=== PATIENT | male | born 2005 | race Caucasian/White ===

== ENCOUNTER 2024-05-23 07:10 | Emergency (ER) | payer OTHER ==
[2024-05-23] MEDS ORDERED: Ketorolac Tromethamine 30 MG (1 mL) VIAL ONE (07:38)
[2024-05-23] MEDS ORDERED: cefTRIAXone (ROCEPHIN) 1 GM VIAL ONE (07:46)
[2024-05-23 08:06] LABS: #Basophils 0.03 10x3/uL (0.0-0.2); #Eosinphils 0.01 10x3/uL (0.0-0.5); #Monocytes 0.95 10x3/uL (0.0-1.1); #Neutrophils 11.13 10x3/uL (1.5-8.4); %Basophils 0.2 % (0.0-2.0); %Eosinophils 0.1 % (0.0-6.0); %Monocytes 7.2 % (0.0-10.0); %Neutrophils 84.9 % (40.0-75.0); Hematocrit 40.8 % (38.8-50.0); Hemoglobin 14.9 g/dL (13.5-17.5); Mean Corpuscular HGB CONC 36.5 g/dL (32.0-36.0); Mean Platelet Volume 10.1 fL (7.4-10.4); Platelet Count 196 10x3/uL (150-450); RBC Distribution Width 11.5 % (11.5-14.5); White Blood Cell (WBC) Count 13.1 10x3/uL (3.5-10.5)
[2024-05-23 08:13] LABS: Bilirubin Neg (Negative); Blood, Urine 10 (Negative); Clarity Clear (Clear); Glucose, Urine (Dipstick) Normal (Negative); Ketone, Urine 50 mg/dL (Negative); Leukocyte Negative (Negative); Nitrite Negative (Negative); Protein, Urine (Dipstick) 100 mg/dl (Neg-Trace); Specific Gravity, Urine 1.015 (1.005-1.030)
[2024-05-23] MEDS ORDERED: Acetaminophen 500 MG TAB ONE (08:13)
[2024-05-23 08:19] LABS: ALT (SGPT) 19 U/L (8-55); AST (SGOT) 24 U/L (5-34); Albumin 3.8 g/dL (3.5-5.0); Alkaline Phosphatase 56 U/L (50-130); Anion Gap 18 mmol/L (10-20); BUN (Urea Nitrogen) 10 mg/dL (8.9-20.6); Bilirubin, Total 1.4 mg/dL (0.2-1.2); Calc. Creatinine Clearance 0 mL/min (70-130); Calcium 9.1 mg/dL (7.8-10.44); Carbon Dioxide 21 mmol/L (22-29); Chloride 96 mmol/L (98-107); Estimated GFR 77; Globulin 3.7 g/dL (2.4-3.5); Glucose 114 mg/dL (70-105); Protein, Total 7.5 g/dL (6.0-8.3); Sodium 131 mmol/L (136-145)
[2024-05-23 08:41] LABS: Bacteria/HPF Rare-Few HPF (None Seen); CAUTI Indications for Culture Fever or rigors; RBC/HPF 0-3 HPF (0-3); Transitional Epithelial 0-3 HPF (None Seen)
[2024-05-23 08:42] LABS: Urine Culture Reflex No No
== END 2024-05-23 08:37 | disposition home or self-care (01) ==
LOC: CSHERS 07:10
DX: J18.9 Pneumonia, unspecified organism (principal); Z55.6 Problems related to health literacy
CPT/HCPCS: 36415; 71045; 80053; 81001; 83605; 85025; 87040; 96374; 96375; J0696; J1885